=== PATIENT | male | born 1980 | race Caucasian/White ===

== ENCOUNTER 2017-11-19 09:40 | Inpatient (IN) | payer OTHER ==
[~2017-11-19] VITALS: Ht 172.7 cm; Wt 86.2 kg
[2017-11-19] MEDS ORDERED: CLONIDINE HCL 0.1 MG TABLET PO PRN (10:30)
[2017-11-19] MEDS ORDERED: LORAZEPAM 2 MG/1 ML VIAL IM PRN (10:30)
[2017-11-19] MEDS ORDERED: MIRALAX 17 GM POWD.PACK PO PRN (10:30)
[2017-11-19] MEDS ORDERED: ONDANSETRON ODT 4 MG TAB.RAPDIS SL PRN (10:30)
[2017-11-19] MEDS ORDERED: ACETAMINOPHEN 325 MG TABLET PO PRN (10:30)
[2017-11-19] MEDS ORDERED: MAGNESIUM HYDROXIDE 30 ML LIQUID UDC PO PRN (10:30)
[2017-11-19] MEDS ORDERED: ONDANSETRON 4 MG/2 ML VIAL IM PRN (10:30)
[2017-11-19] MEDS ORDERED: LOPERAMIDE HCL 2 MG CAPSULE PO PRN ×2 (10:30)
[2017-11-19] MEDS ORDERED: KETOROLAC TROMETHAMINE 30 MG INJ IM PRN (10:30)
[2017-11-19] MEDS ORDERED: HYDROXYZINE PAMOATE 25 MG CAPSULE PO PRN (10:30)
[2017-11-19] MEDS ORDERED: MAG HYDROX/AL HYDROX/SIMETH 30 ML LIQUID UDC PO PRN (10:30)
[2017-11-19] MEDS ORDERED: DICYCLOMINE HCL 20 MG TABLET PO PRN (10:30)
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
[2017-11-19 11:09] LABS: *AMPHETAMINE, URINE NEGATIVE (NEGATIVE); *BARBITURATE, URINE NEGATIVE (NEGATIVE); *CANNABINOID, URINE NEGATIVE (NEGATIVE); *COCCAINE, URINE NEGATIVE (NEGATIVE); *OPIATE, URINE NEGATIVE (NEGATIVE); *PHENCYCLIDINE SCREEN,URINE NEGATIVE (NEGATIVE)
[2017-11-19 11:30] LABS: BASOPHILS # (AUTO) 0.1 K/uL (0.0-8.0); BASOPHILS % (AUTO) 0.5 % (0.0-2.0); EOSINOPHILS # (AUTO) 0.1 K/uL (0.0-0.7); EOSINOPHILS % (AUTO) 0.7 % (0.0-7.0); HEMATOCRIT 50.1 % (36.7-47.1); LYMPHOCYTES # (AUTO) 1.9 K/uL (20.0-40.0); MEAN CORPUSCULAR HEMOGLOBIN 30.7 uug (23.8-33.4); MEAN CORPUSCULAR HGB CONC 34 g/dL (32.5-36.3); MEAN CORPUSCULAR VOLUME 90.5 fL (73.0-96.2); MONOCYTES # (AUTO) 0.6 K/uL (2.0-10.0); MONOCYTES % (AUTO) 5.1 % (0.0-11.0); NEUTROPHILS # (AUTO) 8.4 K/uL (1.8-8.9); NEUTROPHILS % (AUTO) 76.7 % (38.5-71.5); PLATELET COUNT (AUTO) 314 K/uL (152-348); RED BLOOD CELL COUNT(AUTO) 5.54 MIL/uL (4.06-5.63); WHITE BLOOD COUNT (AUTO) 10.9 K/uL (3.6-10.2)
[2017-11-19 11:47] LABS: ALANINE AMINOTRANSFERASE 45 U/L (16-63); ALKALINE PHOSPHATASE 57 U/L (50-136); ASPARTATE AMINOTRANSFERASE 33 U/L (15-37); BILIRUBIN,TOTAL 0.3 mg/dL (0.2-1.0); CARBON DIOXIDE 29 mmol/L (21-32); CHLORIDE 102 mmol/L (98-107); GLUCOSE 137 mg/dL (74-106); MAGNESIUM 2.3 mg/dL (1.8-2.4); POTASSIUM 4.4 mmol/L (3.5-5.1); TOTAL PROTEIN, SERUM 8.6 g/dL (6.4-8.2); UREA NITROGEN, BLOOD 14 mg/dL (7-18)
[2017-11-19] MEDS ORDERED: IBUP-1957 PO (11:53)
[2017-11-19] MEDS ORDERED: GABA-536 PO (11:53)
[2017-11-19 12:00] VITALS: BP 143/85
[2017-11-19 12:29] LABS: ETHANOL < 3 MG/DL (0-0)
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
[2017-11-19] MEDS: PATIENT MAY USE OWN MED- MD OK PO SCH ×2 (15:11→20:17)
[2017-11-19 16:00] VITALS: BP 138/95
--- NOTE | 2017-11-19 18:33 | NUR ---
END OF SHIFT: NEWLY ADMITTED PT HAS BEEN LAYING IN BED SINCE ADMISSION WATCHING TV. HE C/O RESTLESS LEGS AND BODY ACHES. LAST USED 40 MG OF METHADONE AT 5PM LAST NIGHT. HE IS COMPLIANT WITH INCREASED FLUIDS ENCOURAGED. LAST COWS 3. WILL PASS SHIFT REPORT TO ONCOMING NIGHT NURSE.
--- NOTE | 2017-11-19 19:00 | NUR ---
Start of Shift Patient Received. Patient is in his room, awake, alert and verbally responsive. Breathing even and non labored. Per endorsement, patient is a 36 year old male admitted for Opiate Withdrawal and is currently receiving PRN medications. Patient was consuming Methadone prior to admission. Specific orders from MD not to administer Subutex taper until 48 hours from last use. Last use noted 11/17/17. Patient is noted to wear a brace to right wrist due to previous injury. Patient is noted with history of seizures with last seizure noted in 1994. Last noted CIWA 3. All needs attended to promptly. Will continue to monitor.
[2017-11-19 20:06] VITALS: BP 124/85
[2017-11-19] MEDS: IBUPROFEN 600 MG TABLET PO PRN (20:13)
[2017-11-19] MEDS: METHOCARBAMOL 750 MG TABLET PO PRN (20:13)
--- NOTE | 2017-11-19 20:15 | NUR ---
PRN Medication Administration patient is noted verbalizing increased body aches, restless legs, increased anxiety, increased agitated, and increased sweats. Patient verbalizes "I understand I cannot take the Subutex because of the methadone, but Im really uncomfortable." COWS noted to be 12. PRN Motrin and Robaxin administered with routine medication. Will continue to monitor.
[2017-11-19] MEDS ORDERED: LORAZEPAM 1 MG TABLET PO SCH (21:00)
--- NOTE | 2017-11-19 21:15 | NUR ---
PRN Medication Reassessment Patient is noted in bed sleeping. Breathing even and non labored. No signs of restlessness or discomfort noted. patient was given PRN Motrin and Robaxin with medication noted to be effective. Will continue to monitor.
[2017-11-20 00:30] VITALS: BP 110/64
[2017-11-20 04:10] VITALS: BP 105/59
--- NOTE | 2017-11-20 07:01 | NUR ---
End of Shift Patient is in bed sleeping. Breathing even and non labored. No signs of restlessness or discomfort noted. No facial grimacing noted. Patient continues to be monitored for increased signs and symptoms with PRN medications available. Patient continues to wear brace to right wrist. Patient noted with increased restlessness, anxiety, agitation, tremulous, and increased sweats. Patient received PRN Motrin and Robaxin with routine medications and medications noted to be effective. Last noted CIWA 12. Patient noted to sleep at total of 9 hours. All needs attended to promptly. Will endorse to continue plan of care as ordered.
[2017-11-20 08:00] VITALS: BP 100/60
[2017-11-20] MEDS: LORAZEPAM 1 MG TABLET PO PRN ×2 (08:25→21:23)
[2017-11-20] MEDS: METHOCARBAMOL 750 MG TABLET PO PRN ×2 (08:25→20:03)
[2017-11-20] MEDS: IBUPROFEN 600 MG TABLET PO PRN ×2 (08:25→20:03)
[2017-11-20] MEDS: PATIENT MAY USE OWN MED- MD OK PO SCH ×3 (08:25→20:12)
--- NOTE | 2017-11-20 08:27 | NUR ---
START OF SHIFT: RECEIVED PT A/O X 4. HE PRESENTS RESTLESS WITH ANXIOUS MOOD AND CONGRUENT AFFECT. HE REPORTS ANXIETY AND AGITATION ALONG WITH GENERALIZED BODY ACHES ESPECIALLY TO LEGS AND LOWER BACK. HE STATES HE HAS INTERMITTENT CHILLS AND STOMACH CRAMPS. HE REPORTS HE SLEPT FAIR AND HIS APPETITE IS FAIR. COWS 11. PPD IMPLANTED TO LFA. PRN ATIVAN 2MG PO,ROBAXIN PO PRN AND MOTRIN PO PRN ADMINISTERED TO MANAGE S/S OF W/D. WILL MONITOR EFFECTIVENESS OF PRNS. PT EDUCATED AND VERBALLY EXPRESSED UNDERSTANDING THAT SUBUTEX CAN BE ADMINISTERED 48 HOURS FROM LAST USE OF METHADONE. ENCOURAGED INCREASED FLUIDS TO ASSIST IN FACILITATING DETOX PROCESS.WILL CONTINUE TO MONITOR AND MANAGE S/S OF W/D.
[2017-11-20] MEDS ORDERED: TUBERCULIN,PURIF.PROT.DERIV. 5 TU/0.1 ML TEST ID ONE (09:00)
--- NOTE | 2017-11-20 09:30 | NUR ---
PT STATES PRN ATIVAN, ROBAXIN AND PRN MOTRIN WAS MILDLY EFFECTIVE IN REDUCING SYMPTOMS.
[2017-11-20 12:00] VITALS: BP 106/50
[2017-11-20 12:26] LABS: HEPATITIS B SURFACE AG Negative (Negative)
[2017-11-20 16:00] VITALS: BP 125/79
[2017-11-20] MEDS ORDERED: BUPRENORPHINE HCL 2 MG TAB.SUBL SL ONE (17:00)
[2017-11-20] MEDS ORDERED: BUPRENORPHINE HCL 2 MG TAB.SUBL SL PRN (17:00)
--- NOTE | 2017-11-20 17:05 | NUR ---
ADMINISTERED ONE TIME DOSE OF SUBUTEX 2 MG SL ORDERED. COWS 13. HE REPORTS INTERMITTENT CHILLS AND SWEATS. HE REPORTS BODY ACHES,RESTLESSNESS,AGITATION AND FATIGUE. WILL MONITOR EFFECTIVENESS.
--- NOTE | 2017-11-20 17:35 | NUR ---
PT STATES THE SUBUTEX WAS MILDLY EFFECTIVE. COWS 10.
--- NOTE | 2017-11-20 18:43 | NUR ---
END OF SHIFT: PT STARTED SUBUTEX TAPER THIS AFTERNOON. HIS MOOD IS DEPRESSED WITH BLUNTED AFFECT. HE REPORTS DEPRESSION,ANXIETY,IRRITABILITY,INTERMITTENT SWEATS AND CHILLS. HE SLEPT ON AND OFF MOST OF SHIFT AND ISOLATED IN HIS ROOM. HE WAS COMPLIANT WITH INCREASED FLUIDS.HE STARTED WITH 2 MG SUBUTEX SL AND STATED IT WAS MILDLY EFFECTIVE . PRN ROBAXIN,MOTRIN AND ATIVAN GIVEN IN EARLY PART OF DAY TO MANAGE S/S OF W/D AND MILDLY EFFECTIVE. WILL PASS SHIFT REPORT TO [facility] NIGHT NURSE. Addendum: 11/20/17 at 1926 by TYESHA GUDINO RN LAST COWS 10
--- NOTE | 2017-11-20 19:10 | NUR ---
START OF SHIFT Patient is a 36-year-old male admitted on 11/19/17 for methadone withdrawal. Patient is scheduled to start a 5-day Subutex taper tomorrow, 11/21/17, with PRN Subutex started today. Patients last COWS score was 10 per day shift nurse. Patient received PRN Ativan, Robaxin and Motrin today; all noted to be effective by day nurse. Patient received one time 2mg Subutex SL at 1709 for COWS of 13, noted to be mildly effective. Upon assessment, patient is flushed and diaphoretic, complaining of chills and sweats. Patient is unshaven and disheveled, tearful and anxious. Patient reports lower back pain and bilateral leg pain 8/10. 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 Safety measures in place, side rails up x2, bed locked in low position, call light within reach. Will continue to monitor.
[2017-11-20 20:00] VITALS: BP 130/85
[2017-11-20] MEDS: CLONIDINE HCL 0.1 MG TABLET PO SCH (20:03)
--- NOTE | 2017-11-20 20:03 | NUR ---
PRN ROBAXIN AND MOTRIN Patient reports back pain and bilateral leg pain 8/10 on pain scale. PRN Robaxin and Motrin given PO. Safety measures in place, side rails up x2, bed locked in low position, call light within reach. Will monitor for effectiveness.
[2017-11-20] MEDS ORDERED: BUPRENORPHINE HCL 2 MG TAB.SUBL SL SCH (21:00)
--- NOTE | 2017-11-20 21:03 | NUR ---
PRN ROBAXIN AND MOTRIN REASSESSMENT Patient reports pain is now 4/10 from previous 8/10. PRN meds effective. Safety measures in place, call light within reach. Will continue to monitor.
--- NOTE | 2017-11-20 21:23 | NUR ---
PRN ATIVAN Patient observed sitting in chair by window. Patient reports increased anxiety and agitation, states he is unable to sleep and is tearful. PRN Ativan 2mg given PO, current CIWA is 13. Respirations even and unlabored. SN stayed in patient's room for a few minutes to speak with patient about how patient felt and what was making him the most anxious. SN allowed pt time to verbalize feelings and thoughts. Safety measures in place, side rails up x2, bed locked in lowest position, call light within reach. Will monitor for effectiveness.
--- NOTE | 2017-11-20 22:23 | NUR ---
PRN ATIVAN REASSESSMENT Patient is observed in bed sleeping with eyes closed. Respirations even and unlabored. PRN Ativan effective in assisting patient to fall asleep R/T his ability to relax. Unable to score CIWA at this time due to patient sleeping. Safety measures in place, call light within reach. Will continue to monitor.
[2017-11-21] VITALS: BP 111/71
--- NOTE | 2017-11-21 | NUR ---
COWS AND CIWA DEFERRED COWS and CIWA deferred due to patient sleeping; to be assessed and scored while patient is awake. Safety measures in place, call light within reach. Will continue to monitor.
[2017-11-21 04:00] VITALS: BP 103/67
--- NOTE | 2017-11-21 04:00 | NUR ---
COWS DEFERRED COWS deferred due to patient sleeping; to be assessed and scored while patient is awake. Safety measures in place, call light within reach. Will continue to monitor.
--- NOTE | 2017-11-21 07:05 | NUR ---
END OF SHIFT Patient is a 36-year-old male admitted on 11/19/17 for methadone withdrawal. Patient is scheduled to start a 5-day Subutex taper today, with PRN Subutex since yesterday. Patients last COWS was 13, with last CIWA 13 prior to PRN Ativan. Patient received PRN Ativan, Robaxin and Motrin today; all noted to be effective. Patient slept for 10 hours, total intake 1,096mL, void x1, stool x0. Patient is on seizure and fall precautions with last seizure in 199. Safety measures in place, side rails up x2, bed locked in low position, call light within reach. Will endorse to day shift.
--- NOTE | 2017-11-21 07:30 | NUR ---
START OF SHIFT Received report from director community organization nurse. Pt is lying in bed resting. He is a 36 [address] to [facility] on 11/19 for methadone dependence. He is A&O and ambulatory. Pt continues on a Subutex taper. He has facial flushing, moist skin, and goose bumps. His hair is disheveled and he is unshaven. Pt does not seem motivated for self care at this time. He is noted with a flat affect and depressed mood. He reports chills and low back pain. Pt denies SI/HI. Medications due this morning. Safety measures in place.
[2017-11-21 08:00] VITALS: BP 136/78
[2017-11-21] MEDS: CLONIDINE HCL 0.1 MG TABLET PO SCH ×2 (08:32→20:39)
[2017-11-21] MEDS: PATIENT MAY USE OWN MED- MD OK PO SCH (08:32)
[2017-11-21] MEDS: BUPRENORPHINE HCL 2 MG TAB.SUBL SL SCH ×3 (08:33→20:33)
[2017-11-21] MEDS: IBUPROFEN 600 MG TABLET PO PRN (08:33)
[2017-11-21] MEDS: METHOCARBAMOL 750 MG TABLET PO PRN (08:33)
--- NOTE | 2017-11-21 08:34 | NUR ---
PRN Motrin and Robaxin Pt reports low back and bilateral leg pain 02/05. PRN Motrin and Robaxin administered.
--- NOTE | 2017-11-21 09:34 | NUR ---
PRN Motrin and Robaxin reassessment PRN Motrin and Robaxin effective. Pt appears to be sleeping in bed. Respirations even and unlabored. Safety measures in place.
[2017-11-21] MEDS: LORAZEPAM 1 MG TABLET PO PRN ×2 (10:59→20:32)
--- NOTE | 2017-11-21 11:00 | NUR ---
PRN Ativan and Tylenol Pt reports high anxiety level with racing thoughts. He appears restless and is unable to keep is legs from bouncing. His facial expression is distressed. Encouraged deep breathing and relaxation. Pt also reports low back and leg aches 6/10. PRN Ativan and Tylenol administered.
[2017-11-21 12:00] VITALS: BP 98/56
--- NOTE | 2017-11-21 13:36 | NUR ---
PRN Toradol Pt reports low back and bilateral leg pain 04/07. PRN Toradol administered.
--- NOTE | 2017-11-21 14:06 | NUR ---
PRN Toradol reassessment PRN Toradol effective. Pt's pain level is reduced to 2/10.
[2017-11-21] MEDS: DICYCLOMINE HCL 20 MG TABLET PO SCH ×2 (14:39→20:36)
[2017-11-21] MEDS ORDERED: PATIENT MAY USE OWN MED- MD OK PO SCH (15:00)
[2017-11-21] MEDS ORDERED: GABAPENTIN 400 MG PO SCH (15:20)
[2017-11-21 16:00] VITALS: BP 111/57
[2017-11-21] MEDS: GABAPENTIN 400 MG PO SCH ×2 (16:37→20:31)
--- NOTE | 2017-11-21 19:00 | NUR ---
END OF SHIFT Report provided to scallop raker nurse. Pt is in the rec room watching TV. He is a 36 yo male admitted to [facility] on 11/19 for methadone dependence. He is A&O and ambulatory. Pt continues on a Subutex taper. He attended some group meetings. Pt was experiencing pain and anxiety. PRN Motrin, Robaxin, Tylenol, Toradol, and Ativan administered. He had adequate nutritional intake and he drank 2650mL. Last COWS 7. Safety measures in place.
--- NOTE | 2017-11-21 19:30 | NUR ---
Start of Shift Pt is a 36 y/o male admitted on 11/19/17 for medically managed withdrawal/detox from Methadone. Pt found laying in bed after requesting to meet nurse. Able to make and maintain eye contact, responds appropriately to questions, hands show tremors, sweat on brow, mild nausea, COWS 9. Will include Ativan 1mg PO with 2100 meds and monitor, promptly attending to all needs.
[2017-11-21 20:00] VITALS: BP 125/80
[2017-11-21] MEDS: BACLOFEN 10 MG TABLET PO SCH (20:36)
--- NOTE | 2017-11-21 20:40 | NUR ---
Med Held Clonidine 0.1mg PO held for HR 56 (<70), BP 125/80. Will continue to monitor and promptly attend to all needs
--- NOTE | 2017-11-22 | NUR ---
COWS Deferred Midnight 0000 deferred r/t pt sleeping/refused. RR noted to be 14, even and non-labored. Will continue to monitor and promptly attend to all needs.
--- NOTE | 2017-11-22 04:00 | NUR ---
COWS Deferred 0400 deferred r/t pt sleeping/refused. RR noted to be 14, even and non-labored. Will continue to monitor and promptly attend to all needs.
--- NOTE | 2017-11-22 07:00 | NUR ---
End of Shift Pt is a 36 y/o male admitted on 11/19/17 for medically managed withdrawal/detox from Methadone. No PRN's given during night. Pt slept for 8+ hours with 1300 intake, 3 voids. Will continue to monitor and promptly attend to all needs until am endorsement to day nurse
--- NOTE | 2017-11-22 07:47 | NUR ---
START OF SHIFT: RECEIVED PT A/O X 4 LAYING IN BED. HE PRESENTS WITH DEPRESSED MOOD AND BLUNTED AFFECT. HE REPORTS LEG AND BACK PAIN 5/10 ON PAIN SCALE. GENERALIZED BODY ACHES, ANXIETY, AGITATION AND GENERALIZED BODY ACHES HE REPORTS SOME NIGHT SWEATS AND INTERMITTENT CHILLS. HE REPORTS HE SLEPT FAIR AND HIS APPETITE IS FAIR. SUBUTEX TAPER IN PROGRESS. COWS 11. WILL INCLUDE ANALGESICS PRN IN AM MED PASS ENCOURAGED INCREASED FLUIDS TO ASSIST IN FACILITATING DETOX PROCESS. ENCOURAGED GROUP ATTENDANCE TO IMPROVE COPING SKILLS AND PREVENT RELAPSE. WILL CONTINUE TO MONITOR AND MANAGE S/S OF W/D.
[2017-11-22 08:00] VITALS: BP 116/65
[2017-11-22] MEDS: GABAPENTIN 400 MG PO SCH ×3 (08:12→21:30)
[2017-11-22] MEDS: DICYCLOMINE HCL 20 MG TABLET PO SCH ×3 (08:12→21:30)
[2017-11-22] MEDS: CLONIDINE HCL 0.1 MG TABLET PO SCH ×3 (08:13→21:29)
[2017-11-22] MEDS: IBUPROFEN 600 MG TABLET PO PRN (08:13)
[2017-11-22] MEDS: BACLOFEN 10 MG TABLET PO SCH ×3 (08:13→21:29)
[2017-11-22] MEDS ORDERED: BUPRENORPHINE HCL 2 MG TAB.SUBL SL SCH (09:00)
[2017-11-22 12:00] VITALS: BP 116/81
--- NOTE | 2017-11-22 12:46 | NUR ---
Therapist prompted client about group times. Client stated he missed group this morning because he was sleeping and reports he will attend group this afternoon.
--- NOTE | 2017-11-22 12:48 | NUR ---
PRN CLONIDINE AND PRN VISTARIL GIVEN FOR REPORTED ANXIETY,AGITATION AND RESTLESSNESS. WILL MONITOR EFFECTIVENESS OF PRNS.
[2017-11-22] MEDS ORDERED: LORAZEPAM 1 MG TABLET PO PRN (13:15)
--- NOTE | 2017-11-22 13:50 | NUR ---
PRN CLONIDINE AND VISTARIL EFFECTIVE PT IS ASLEEP. BED LOW AND LOCKED. CALL LEON IN REACH.
[2017-11-22] MEDS: BUPRENORPHINE HCL 2 MG TAB.SUBL SL SCH ×2 (15:08→21:31)
[2017-11-22 16:00] VITALS: BP 118/77
--- NOTE | 2017-11-22 18:50 | NUR ---
END OF SHIFT: PT CONTINUES ON SUBUTEX TAPER. HIS MOOD IS DEPRESSED WITH BLUNTED AFFECT. HE REPORTS DEPRESSION AND ANXIETY. HE ALSO REPORTS BODY ACHES AND RESTLESS LEGS. PRN CLONIDINE AND VISTARIL GIVEN FOR ANXIETY AND EFFECTIVE. HE ATTENDED GROUPS AND INTERACTED WITH PEERS. ` WILL PASS SHIFT REPORT TO ONCOMING NIGHT NURSE.
--- NOTE | 2017-11-22 19:30 | NUR ---
START OF SHIFT Received 36 year old male patient admitted on 11/19/17 for Methadone withdrawal. Pt is alert and oriented x4. He is receiving a 5 day Subutex taper started on 11/21/17 and is tolerating well. Pt is noted to be anxious, restless, agitated, and fidgety with flushed face. He complains of back and lower leg pain 5/10 and anxiety. Per endorsement, pt received PRN Clonidine and Vistaril. Last COWS:8 at 1600. Breathing is even and unlabored, safety measures in place. Will continue to monitor.
[2017-11-22 20:00] VITALS: BP 122/92
--- NOTE | 2017-11-22 22:06 | NUR ---
PRN ATIVAN Pt is anxious, fidgety, agitated, and restless. Pt noted to be in room unable to sit still. PRN Ativan administered as ordered. Breathing even and unlabored, safety measures in place. Will monitor effectiveness.
--- NOTE | 2017-11-22 23:06 | NUR ---
PRN REASSESSMENT PRN medication effective. Pt is lying in bed with eyes closed noted to be asleep. Breathing is even and unlabored, safety measures in place. Will monitor.
--- NOTE | 2017-11-23 | NUR ---
VITALS REFUSED, COWS DEFERRED 0000 vitals refused d/t pt reports difficulty sleeping at night and did not want to be woken up. COWS deferred d/t pt lying in bed with eyes closed noted to be asleep. Breathing is even and unlabored, safety measures in place. Will monitor.
--- NOTE | 2017-11-23 04:00 | NUR ---
VITALS REFUSED, COWS DEFERRED 0400 vitals refused d/t pt reports difficulty sleeping at night and did not want to be woken up. COWS deferred d/t pt lying in bed with eyes closed noted to be asleep. Breathing is even and unlabored, safety measures in place. Will monitor.
--- NOTE | 2017-11-23 07:07 | NUR ---
END OF SHIFT Pt is a 36 year old male patient admitted on 11/19/17 for Methadone withdrawal. He remains alert and oriented x4. He continues on a 5 day Subutex taper and is tolerating well. Pt was noted to be anxious, restless, agitated, and fidgety. He had complaints of back and lower leg pain 5/10. At 2206 he received PRN Ativan for anxiety/agitation. Medication was effective. He slept a total of 6 hrs, Intake: 2,350mL, Void: x4, BM:0, COWS;7 at 2000. Breathing is even and unlabored, safety measures in place. Endorsed to AM shift.
[2017-11-23 08:00] VITALS: BP 116/68
[2017-11-23] MEDS: DICYCLOMINE HCL 20 MG TABLET PO SCH ×3 (08:05→21:24)
[2017-11-23] MEDS: CLONIDINE HCL 0.1 MG TABLET PO SCH ×2 (08:05→14:53)
--- NOTE | 2017-11-23 08:05 | NUR ---
START OF SHIFT: RECEIVED PT A/O X 4 LAYING IN BED. HE PRESENTS WITH DEPRESSED MOOD AND BLUNTED AFFECT. HE REPORTS GENERALIZED BODY ACHES, ANXIETY, AGITATION AND IRRITABILITY AND RESTLESSNESS.PT IS FIDGETY. HE REPORTS SOME NIGHT SWEATS AND INTERMITTENT CHILLS. HE REPORTS HE SLEPT FAIR. . SUBUTEX TAPER IN PROGRESS TO MANAGE S/S OF W/D. COWS 9. SCHEDULED BACLOFEN WILL BE GIVEN TO MANAGE BODY ACHES.ENCOURAGED INCREASED FLUIDS TO ASSIST IN FACILITATING DETOX PROCESS. ENCOURAGED GROUP ATTENDANCE TO IMPROVE COPING SKILLS AND PREVENT RELAPSE. WILL CONTINUE TO MONITOR AND MANAGE S/S OF W/D.
[2017-11-23] MEDS: GABAPENTIN 400 MG PO SCH (08:06)
[2017-11-23] MEDS: BACLOFEN 10 MG TABLET PO SCH (08:06)
[2017-11-23] MEDS: BUPRENORPHINE HCL 2 MG TAB.SUBL SL SCH ×3 (08:06→21:26)
[2017-11-23 12:00] VITALS: BP 152/88
[2017-11-23] MEDS: LIDOCAINE 5% PATCH TD SCH (13:32)
[2017-11-23] MEDS: BACLOFEN 20 MG TABLET PO SCH ×2 (14:52→21:25)
[2017-11-23] MEDS: ACETAMINOPHEN 325 MG TABLET PO SCH ×2 (14:53→21:24)
[2017-11-23] MEDS: [UNRECOGNIZED DRUG - OTHER] PO SCH ×2 (15:19→21:25)
[2017-11-23 16:00] VITALS: BP 117/81
--- NOTE | 2017-11-23 18:48 | NUR ---
END OF SHIFT: PT CONTINUES ON SUBUTEX TAPER. LAST COWS 6. HIS MOOD IS ANXIOUS WITH RESTRICTED AFFECT. HE REPORTS ANXIETY. HE ALSO REPORTS BODY ACHES AND RESTLESS LEGS. SCHEDULED BACLOFEN AND CLONIDINE EFFECTIVE. HE STATES DETOX MEDS ARE ALSO EFFECTIVE. HE ATTENDED GROUPS AND INTERACTED WITH PEERS. WILL PASS SHIFT REPORT TO ONCOMING NIGHT NURSE.
--- NOTE | 2017-11-23 19:30 | NUR ---
START OF SHIFT Received 36 year old male patient admitted on 11/19/17 for Methadone withdrawal. Pt is alert and oriented x4. Pt continues on 5 day Subutex taper and tolerating well. Per endorsement, pt did not receive or request PRN medications. His clonidine was increased from 0.1 mg to 0.2 mg. Pt complains of anxiety, restlessness, body aches, chills, sweats, abdominal cramps and is noted with a flushed face. Last COWS:6 at 1600. Breathing is even and unlabored. Safety measures in place. Will monitor.
[2017-11-23 20:00] VITALS: BP 122/79
[2017-11-23] MEDS: CLONIDINE HCL 0.2 MG TABLET PO SCH (21:25)
--- NOTE | 2017-11-24 | NUR ---
VITALS REFUSED, COWS DEFERRED 0000 vitals refused. COWS deferred d/t pt lying in bed with eyes closed noted to be asleep. Breathing is even and unlabored, safety measures in place. Will continue to monitor.
--- NOTE | 2017-11-24 04:00 | NUR ---
VITALS REFUSED, COWS DEFERRED 0400 vitals refused. COWS deferred d/t pt lying in bed with eyes closed noted to be asleep. Breathing is even and unlabored, safety measures in place. Will continue to monitor.
--- NOTE | 2017-11-24 07:11 | NUR ---
END OF SHIFT Pt is a 36 year old male patient admitted on 11/19/17 for Methadone withdrawal. He remains alert and oriented x4. Pt continues on 5 day Subutex taper. He is currently on day 4 and is tolerating well. He did not receive or request PRN medications. He had complaints of anxiety, restlessness, body aches, chills, sweats, abdominal cramps during the shift. He slept a total of 7 hrs, Intake:2,000mL, Void:x5 , BM:0 . Last COWS:6 at 1600. Breathing is even and unlabored. Safety measures in place. Endorsed to AM shift.
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
[2017-11-24 08:00] VITALS: BP 109/69
[2017-11-24] MEDS: ACETAMINOPHEN 325 MG TABLET PO SCH ×3 (08:19→20:59)
[2017-11-24] MEDS: CLONIDINE HCL 0.1 MG TABLET PO SCH ×2 (08:19→14:19)
[2017-11-24] MEDS: DICYCLOMINE HCL 20 MG TABLET PO SCH ×3 (08:19→20:59)
[2017-11-24] MEDS: BUPRENORPHINE HCL 2 MG TAB.SUBL SL SCH ×2 (08:19→20:58)
[2017-11-24] MEDS: BACLOFEN 20 MG TABLET PO SCH ×3 (08:19→21:00)
[2017-11-24] MEDS: LIDOCAINE 5% PATCH TD SCH (08:20)
[2017-11-24] MEDS: [UNRECOGNIZED DRUG - OTHER] PO SCH ×3 (08:48→21:00)
[2017-11-24 12:00] VITALS: BP_SYST 109; BP_SYST 111; BP_DIAS 63; BP_DIAS 71
[2017-11-24] MEDS: IBUPROFEN 600 MG TABLET PO PRN ×2 (13:19→22:21)
--- NOTE | 2017-11-24 13:19 | NUR ---
Motrin 600 mg PO given: Patient verbalizes a headache of 5/10. Unable to be relieved with non-pharmacological intervention. Medicated patient with Motrin 600 mg PO as ordered. Will monitor for effectiveness.
--- NOTE | 2017-11-24 14:19 | NUR ---
Re-assessment: Motrin Patient verbalized that his headache has been completely relieved with Motrin. PL 0/10. PRN Motrin was effective.
[2017-11-24 16:00] VITALS: BP 128/66
[2017-11-24] MEDS ORDERED: ACET325T53 PO (16:14)
[2017-11-24] MEDS ORDERED: DICY20TA28 PO (16:14)
[2017-11-24] MEDS ORDERED: IBUP-1955 PO (16:14)
[2017-11-24] MEDS ORDERED: HYDR-3895 PO (16:14)
[2017-11-24] MEDS ORDERED: BACL20TA PO (16:14)
[2017-11-24] MEDS ORDERED: LIDO30AD10 TD (16:14)
[2017-11-24] MEDS ORDERED: DIPH50CA37 PO (16:14)
[2017-11-24] MEDS ORDERED: CLON0.1T14 PO (16:14)
--- NOTE | 2017-11-24 19:03 | NUR ---
End of Shift Notes: Patient continues to be on 5-day Subutex taper as ordered. No adverse reactions noted. Patient is tolerating taper well. VS monitored closely. No significant abnormalities noted. Withdrawal symptoms were closely monitored. Initial COWS 16, patient presented with anxiety, agitation, nasal stuffiness, myalgia, restless legs, paresthesia, chills and hot flashes. Last COWS 13. Per patient, Subutex has been effective in reducing his withdrawal symptoms. Medicated patient with Motrin 600 mg PO as ordered at 1319 for headache with help after 1 hour. Patient is on routine pain medications as ordered for low back pain and right arm pain. Able to participate in group and activities despite his withdrawal symptoms. Compliant with care and treatment. All needs met and attended. Will continue to monitor closely.
--- NOTE | 2017-11-24 19:30 | NUR ---
Start of Shift Pt is a 36 y/o male admitted 11/19/17 for medically managed withdrawal/detox from Methadone. Room originally found empty, pt located returned shortly. While appearing disheveled and unkempt with unwashed/uncombed hair and davis, cooperative, friendly. Pt reports satisfaction with detox and facilities, talking about other pt's severity of addiction stating disbelief about degree of dependence, how he "wants to be sober". Pt presents c/o H/A, lasting all day (report of such received in endorsement). VS's stable, COWS 10. 2100 meds reviewed-Tylenol 650mg PO scheduled. Will continue to monitor and attend to all needs promptly.
[2017-11-24 20:00] VITALS: BP 137/88
[2017-11-24] MEDS: CLONIDINE HCL 0.2 MG TABLET PO SCH (20:59)
[2017-11-24] MEDS: diphenhydrAMINE 50 MG CAPSULE PO PRN (22:20)
--- NOTE | 2017-11-24 22:20 | NUR ---
PRN Med Motrin 600mg PO for H/A pain, and Benedryl 50mg PO for insomnia, given. Will continue to monitor and reassess in 1 hour, promptly attending to all needs.
--- NOTE | 2017-11-24 23:20 | NUR ---
PRN Med Reassessment Motrin 600mg PO given for H/A pain 03/07, and Benedryl 50mg PO for insomnia. Pt found sleeping. Will continue to monitor and promptly attend to all needs
--- NOTE | 2017-11-25 | NUR ---
VS's/COWS Deferred Vs's and COWS deferred r/t pt sleeping/refused. RR 14, even and non-labored. Will continue to monitor and promptly attend to all needs
--- NOTE | 2017-11-25 04:00 | NUR ---
VS's/COWS Deferred Vs's and COWS deferred r/t pt sleeping/refused. RR 14, even and non-labored. Will continue to monitor and promptly attend to all needs
--- NOTE | 2017-11-25 06:41 | NUR ---
End of Shift Pt is a 36 y/o male admitted 11/19/17 for medically managed withdrawal/detox from Methadone. Pt c/o H/A, lasting all day, scheduled Tylenol 650mg PO ineffective. Motrin 600mg PO given with Benedryl 50mg PO, 1 hour reassessment pt found sleeping. Pt slept for 7+ hours during night, with 1000 mls intake and 3 voids and 0 BM's. Will continue to monitor pt and attend to all needs promptly before giving endorsement to day nurse.
--- NOTE | 2017-11-25 07:53 | NUR ---
START OF SHIFT: RECEIVED PT A/O X 4 LAYING IN BED. HE PRESENTS WITH ANXIOUS MOOD AND GUARDED AFFECT. HE REPORTS GENERALIZED BODY ACHES, ANXIETY, AND RESTLESSNESS. HE REPORTS HE SLEPT FAIR. . SUBUTEX TAPER IN PROGRESS TO MANAGE S/S OF W/D. COWS 8 . ENCOURAGED INCREASED FLUIDS TO ASSIST IN FACILITATING DETOX PROCESS. ENCOURAGED GROUP ATTENDANCE TO IMPROVE COPING SKILLS AND PREVENT RELAPSE. WILL CONTINUE TO MONITOR AND MANAGE S/S OF W/D.
[2017-11-25 08:00] VITALS: BP 126/80
[2017-11-25] MEDS: [UNRECOGNIZED DRUG - OTHER] PO SCH ×3 (08:22→22:02)
[2017-11-25] MEDS: DICYCLOMINE HCL 20 MG TABLET PO SCH ×3 (08:24→22:02)
[2017-11-25] MEDS: BACLOFEN 20 MG TABLET PO SCH ×3 (08:24→22:02)
[2017-11-25] MEDS: ACETAMINOPHEN 325 MG TABLET PO SCH ×3 (08:24→22:02)
[2017-11-25] MEDS: CLONIDINE HCL 0.1 MG TABLET PO SCH ×2 (08:24→14:50)
[2017-11-25] MEDS: LIDOCAINE 5% PATCH TD SCH (08:25)
[2017-11-25] MEDS ORDERED: BUPRENORPHINE HCL 2 MG TAB.SUBL SL SCH (09:00)
[2017-11-25 12:00] VITALS: BP 122/75
[2017-11-25 16:00] VITALS: BP 130/76
--- NOTE | 2017-11-25 18:36 | NUR ---
END OF SHIFT: PT COMPLETED SUBUTEX TAPER THIS AM . LAST COWS 5 . HIS MOOD IS ANXIOUS WITH RESTRICTED AFFECT. HE REPORTS ANXIETY. HE ALSO REPORTS BODY ACHES . SCHEDULED TYLENOL, BACLOFEN AND CLONIDINE EFFECTIVE. HE STATES DETOX MEDS WERE ALSO EFFECTIVE. HE ATTENDED GROUPS AND INTERACTED WITH PEERS TODAY. DISCHARGE PLANNING IN PROGRESS FOR TOMORROW. WILL PASS SHIFT REPORT TO ONCOMING NIGHT NURSE.
[2017-11-25 20:00] VITALS: BP 129/87
--- NOTE | 2017-11-25 20:00 | NUR ---
Start of Shift Patient on bed, with c/o pain on the right arm=3/10. Pt noted to be melancholic and stares on the ceiling for a certain period of time. With anxiety noted. Fall, universal, seizure and safety prec in place. Call light within reach. Provided education and teachings. Latest COWS-6. Will continue to monitor.
[2017-11-25] MEDS: CLONIDINE HCL 0.2 MG TABLET PO SCH (22:02)
[2017-11-25] MEDS: diphenhydrAMINE 50 MG CAPSULE PO PRN (22:55)
--- NOTE | 2017-11-25 22:55 | NUR ---
RN note Benadryl Pt c/o inability to sleep. Administered Benadryl 50 mg PO PRN as ordered. Will reassess.
--- NOTE | 2017-11-25 23:55 | NUR ---
RN note reassess Pt asleep on bed, with no facial grimacing nor SOB noted.
[2017-11-26] VITALS: BP 126/81
[2017-11-26 04:00] VITALS: BP 128/77
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
--- NOTE | 2017-11-26 07:30 | NUR ---
End of Shift Patient still asleep on bed but arousable. No SOB noted. With mild anxiety related to discharge today. Pt noted to be depressed, continues to have intermittent pain on all extremities, mariana on the right arm. Pt to be discharged to [facility] and is aware. Fall, universal, seizure and safety prec in place. Call light within reach. Latest COWS=5 and slept for 7 hours. Endorsed to AM shift nurse for continuity of care.
[2017-11-26 08:00] VITALS: BP 132/93
[2017-11-26] MEDS: [UNRECOGNIZED DRUG - OTHER] PO SCH (08:26)
[2017-11-26] MEDS: DICYCLOMINE HCL 20 MG TABLET PO SCH (08:27)
[2017-11-26] MEDS: ACETAMINOPHEN 325 MG TABLET PO SCH (08:27)
[2017-11-26] MEDS: BACLOFEN 20 MG TABLET PO SCH (08:27)
[2017-11-26 08:28] VITALS: BP 132/93
[2017-11-26] MEDS: CLONIDINE HCL 0.1 MG TABLET PO SCH (08:28)
[2017-11-26] MEDS: LIDOCAINE 5% PATCH TD SCH (08:28)
--- NOTE | 2017-11-26 09:36 | NUR ---
Discharged: Discharge instructions were provided to the patient. He verbalized good understanding of all teachings. COWS 9, patient presented with myalgia, anxiety, chills and hot flashes. VS stable. All clothing, medications and valuables were returned to the patient. Denies S/I or H/I noted. No AV hallucinations noted. All necessary discharge paperwork were sent to the patient. Patient was escorted off the unit by DISPATCH COORDINATOR and picked up by [facility] to be transported to [facility] to [facility]. Patient left in stable condition.
== END 2017-11-26 09:35 | disposition other institution (70) | DRG 895 ==
LOC: SRC 09:40
PROVIDERS: ADMIT Internal Medicine; ATTEND Internal Medicine
PROC: HZ2ZZZZ Detoxification Services for Substance Abuse Treatment (ICD-10-PCS; principal; 2017-11-19)
PROC: HZ41ZZZ Group Counseling for Substance Abuse Treatment, Behavioral (ICD-10-PCS; 2017-11-21)
PROC: HZ31ZZZ Individual Counseling for Substance Abuse Treatment, Behavioral (ICD-10-PCS; 2017-11-22)
DX: F11.23 Opioid dependence with withdrawal (principal); I15.9 Secondary hypertension, unspecified; G62.9 Polyneuropathy, unspecified; F17.211 Nicotine dependence, cigarettes, in remission; F41.9 Anxiety disorder, unspecified; S41.101S Unspecified open wound of right upper arm, sequela; D72.823 Leukemoid reaction; Z81.1 Family history of alcohol abuse and dependence; Z82.49 Family history of ischemic heart disease and other diseases of the circulatory system; G89.29 Other chronic pain; M54.5 Low back pain; X95.9XXS Assault by unspecified firearm discharge, sequela; Z86.69 Personal history of other diseases of the nervous system and sense organs
CPT/HCPCS: 36415; 70030-TC; 80307; 83735; 85025; 86580; 86592; 86705; 86803; 87340; 87806; 93005; G0480; J1885; Q0163